=== PATIENT | male | born 1985 | race Caucasian/White ===

== ENCOUNTER 2021-11-06 03:57 | Emergency (ER) | payer BC, SELFPAY ==
[2021-11-06 04:02] VITALS: BP 132/73; PULSE 98; RESP 14; TEMP 36.4; O2SAT 98
--- NOTE | 2021-11-06 04:37 | ED.GENADULT ---
HPI - General Adult General Chief complaint: Skin/Abscess/Foreign Body Stated complaint: knot on the back of my head. Time Seen by Provider: 11/06/21 04:03 History of Present Illness HPI narrative: 36-year-old male with history of MRSA exposure presenting to the emergency department for evaluation of a sore on the back of his scalp. Patient states over the last 2 months he has had multiple sores on his body. Patient does have multiple sores currently in various states of excoriation. Patient's primary complaint is the wound on the back of his scalp. Patient does have a 3 cm area of erythema. Related Data Allergies Allergy/AdvReac Type Severity Reaction Status Date / Time No Known Allergies Allergy Verified 11/06/21 04:33 Review of Systems Review of Systems: CONSTITUTIONAL: Denies fever, chills, or sweats. EYES: Denies visual changes, redness, or discharge. ENT: Denies rhinorrhea, congestion, sore throat, or otalgia. CARDIOVASCULAR: Denies chest pain, palpitations, or edema. RESPIRATORY: Denies cough or dyspnea. GASTROINTESTINAL: Denies abdominal pain, nausea, vomiting, or diarrhea. GENITOURINARY: Denies dysuria or hematuria. SKIN: See HPI MUSCULOSKELETAL: Denies back pain, joint pain, or myalgia. NEUROLOGIC: Denies headache, numbness, or weakness. Exam Narrative: APPEARANCE: Well appearing, no pain, no distress, well-nourished. HEAD: normocephalic, atraumatic. EYES: PERRLA/EOMI, conjunctivae clear. NOSE: Normal no drainage NECK: Supple. No adenopathy, no masses. RESPIRATORY: Airway patent, respirations nonlabored. Clear to auscultation bilaterally, no rales, rhonchi, wheezing. CARDIOVASCULAR: Regular rate and rhythm without murmurs rubs or gallops. ABDOMINAL: Soft, nontender, nondistended, normal bowel sounds MUSCULOSKELETAL: Moves all extremities. Strength/ROM intact, No edema, No calf tenderness. NEURO: Alert. Cranial nerves II through XII intact. Grossly intact SKIN: Warm, dry. Normal Color. Area of erythema on posterior scalp. Bedside ultrasound showed no drainable abscess. Course Course Emergency Course: Patient was started on Bactrim in the emergency department and discharged home with Bactrim. Patient was encouraged to have close follow-up with his primary care physician. All questions and concerns were addressed. Patient was stable at time of discharge. Vital Signs Vital signs: Vital Signs Temperature 97.5 F L 11/06/21 04:02 Pulse Rate 98 11/06/21 04:02 Respiratory Rate 14 11/06/21 04:02 Blood Pressure 132/73 11/06/21 04:02 Pulse Oximetry 98 11/06/21 04:02 Oxygen Delivery Room Air 11/06/21 04:02 Temperature 97.5 F L 11/06/21 04:02 Pulse Rate 98 11/06/21 04:02 Respiratory Rate 14 11/06/21 04:02 Blood Pressure 132/73 11/06/21 04:02 Pulse Oximetry 98 11/06/21 04:02 Oxygen Delivery Room Air 11/06/21 04:02 Medical Decision Making Vital Signs Vital Signs: Vital Signs Temperature 97.5 F L 11/06/21 04:02 Pulse Rate 98 11/06/21 04:02 Respiratory Rate 14 11/06/21 04:02 Blood Pressure 132/73 11/06/21 04:02 Pulse Oximetry 98 11/06/21 04:02 Oxygen Delivery Room Air 11/06/21 04:02 Temperature 97.5 F L 11/06/21 04:02 Pulse Rate 98 11/06/21 04:02 Respiratory Rate 14 11/06/21 04:02 Blood Pressure 132/73 11/06/21 04:02 Pulse Oximetry 98 11/06/21 04:02 Oxygen Delivery Room Air 11/06/21 04:02 Discharge Plan Discharge Clinical Impression: Abscess or cellulitis of scalp Patient Disposition: Home, Self-Care Condition: Stable Instructions: Antibiotic Form, Impetigo (ED), Cellulitis (ED) Additional Instructions: Antibiotic as directed until completed. Have close follow-up with your primary care physician. Prescriptions: New sulfamethoxazole-trimethoprim [Bactrim DS] 800-160 mg tablet 1 tablet PO Q12H Qty: 14 0RF Follow-up/Referrals: PHYSICIAN NOT ON STAFF,NONSTAFF [Primary Care Provider] -
[2021-11-06 04:38] VITALS: BP 130/70; PULSE 75; RESP 18; O2SAT 98
== END 2021-11-06 04:40 | disposition home or self-care (01) ==
PROVIDERS: Emergency Provider Emergency Medicine
DX: L02.811 Cutaneous abscess of head [any part, except face] (principal); L03.811 Cellulitis of head [any part, except face]
CPT/HCPCS: 99283; A9270

== ENCOUNTER 2021-11-09 04:29 | Emergency (ER) | payer BC, SELFPAY ==
[2021-11-09 04:32] VITALS: BP 135/78; PULSE 96; RESP 18; TEMP 36.6; O2SAT 99
--- NOTE | 2021-11-09 04:45 | ED.SKABFB ---
HPI - Skin/Abscess/Foreign Bdy General Chief complaint: Skin/Abscess/Foreign Body Stated complaint: abcess back of head Time Seen by Provider: 11/09/21 04:39 History of Present Illness HPI narrative: 36-year-old male who had been seen here recently and diagnosed with cellulitis, discharged with Bactrim, presents because he states that the infection seems to be getting worse, he is not having any fevers or chills, nausea or vomiting, but states that he has noticed some purulent discharge the last few days. Related Data Allergies Allergy/AdvReac Type Severity Reaction Status Date / Time No Known Allergies Allergy Verified 11/09/21 04:36 Review of Systems Review of Systems: CONST: No fever. HEENT: Painful lesion to back of head C/V: No chest pain RESP: No cough GI: No nausea or vomiting : No dysuria. M/S: No joint pain. SKIN: Painful skin lesion that is draining on the back of his head NEURO: No focal numbness or weakness PSYCH: [No depression] PMFSH Past Medical History Medical History (Updated 11/09/21 @ 05:17 by Jessica Ha MD) MRSA (methicillin resistant staph aureus) culture positive Social History Social History (Updated 11/09/21 @ 05:21 by Jessica Ha MD) Smoking status: Current every day smoker Substance use: current Substance use type: methamphetamine Exam Narrative: EXAMINATION OF ORGAN SYSTEMS/BODY AREAS: Constitutional: Vital signs per nursing GENERAL: Appears distressed from having the skin lesions HEAD: Normal with no signs of head trauma. EYES: EOMI, conjunctiva normal ENT: Hearing grossly intact LUNGS: Nonlabored breathing. HEART: [Regular rate and rhythm] ABD: No distention EXT: Normal range of motion SKIN: Multiple lesions all over body, with large 4 cm x 4 cm circular area of induration to the back of his head that is erythematous, tender to palpation, without any fluctuance NEURO: [Alert and oriented x 3. No gross focal sensory or strength deficits.] PSYCH: Normal affect Course Vital Signs Vital signs: Vital Signs Temperature 97.9 F 11/09/21 04:32 Pulse Rate 96 11/09/21 04:32 Respiratory Rate 18 11/09/21 04:32 Blood Pressure 135/78 11/09/21 04:32 Pulse Oximetry 99 07/28/22 04:32 Oxygen Delivery Room Air 11/09/21 04:32 Temperature 97.9 F 11/09/21 04:32 Pulse Rate 96 11/09/21 04:32 Respiratory Rate 18 11/09/21 04:32 Blood Pressure 135/78 11/09/21 04:32 Pulse Oximetry 99 11/09/21 04:32 Oxygen Delivery Room Air 11/09/21 04:32 MDM - Skin/Abscess/Foreign Bdy MDM Narrative Medical decision making narrative: MEDICAL DECISION MAKING AND COURSE IN THE ED WITH INTERPRETATION/REVIEW OF DIAGNOSTIC STUDIES: Electronic medical record was reviewed. Patient presented to the ED with complaint of painful skin rash. Vitals [were within acceptable limits]. Physical exam revealed area of tenderness and induration consistent with purulent cellulitis versus abscess, without any fluctuance that may benefit from drainage I did perform a bedside ultrasound which confirmed thickened skin consistent with cellulitis without any signs of large fluid collection. However patient really wanted to try I&D so attempt at incision and drainage was performed here, verbal consent obtained and risks/benefits explained. Skin was cleaned and [2% lidocaine] solution was injected to make a wheal for local anesthesia. An 18g was used to attempt to aspirate or wolf the area, with around 2cc of purulent discharge expressed from various areas after pressure applied. There was [minimal] bleeding, patient tolerated procedure [well]. I have asked the patient to come in for observation as he has failed outpatient antibiotics, however he does not want to stay. I wanted to at least get labs for trending however patient refused any IV or lab draws. [Patient was given clindamycin here and a course to continue at home; instructed to continue the bactrim.] The patient is discharged
[2021-11-09] MEDS: CLINDAMYCIN HCL 150 MG CAP 450 MG PO (05:17)
[2021-11-09] MEDS: IBUPROFEN 600 MG TABLET PO (05:27)
[2021-11-09] MEDS: ACETAMINOPHEN 325 MG TABLET 650 MG PO (05:27)
[2021-11-09 05:59] VITALS: BP 137/87; PULSE 52; RESP 18; O2SAT 97
== END 2021-11-09 05:30 | disposition home or self-care (01) ==
PROVIDERS: Emergency Provider Emergency Medicine
DX: L03.811 Cellulitis of head [any part, except face] (principal); Z86.14 Personal history of Methicillin resistant Staphylococcus aureus infection; F17.200 Nicotine dependence, unspecified, uncomplicated
CPT/HCPCS: 10160; 99283; A9270

== ENCOUNTER 2022-03-07 01:00 | Emergency (ER) | payer BC, SELFPAY ==
--- NOTE | ~2022-03-07 | XR_ITS ---
EXAMINATION: XR abdomen/kub 1V DATE: 03/07/2022 02:17 INDICATION: Constipation. TECHNIQUE: A supine view of the abdomen on 2 radiographs was obtained. COMPARISON: None. FINDINGS: There are no dilated loops of bowel. There is a large volume of stool in the colon. IMPRESSION: 1. Large volume of stool in the colon. Reviewed, dictated and finalized at location A. Y INTERVENTIONIST
[2022-03-07 01:03] VITALS: BP 126/74; PULSE 80; RESP 16; TEMP 37.1; O2SAT 98
[2022-03-07 03:00] VITALS: BP 127/87; PULSE 80; RESP 19; O2SAT 100
--- NOTE | 2022-03-07 03:57 | ED.GENADULT ---
HPI - General Adult General Chief complaint: Unspecified Stated complaint: constipation Time Seen by Provider: 03/07/22 02:44 History of Present Illness HPI narrative: This a 37-year-old fentanyl user presenting ED with constipation. Patient has not had a bowel movement in 1 week. He is still passing gas. He is still tolerating p.o. and has not had any nausea or vomiting. Patient uses fentanyl several times a day by snorting it. He has no abdominal surgeries or history of hernia. Related Data Allergies Allergy/AdvReac Type Severity Reaction Status Date / Time No Known Allergies Allergy Verified 11/09/21 04:36 Review of Systems Review of Systems: CONSTITUTIONAL: Denies night sweats. EYES: No eye pain ENT: Denies rhinorrhea CARDIOVASCULAR: Denies palpitations RESPIRATORY: Denies hemoptysis GASTROINTESTINAL: Denies hematemesis GENITOURINARY: Denies hematuria. SKIN: Denies rash MUSCULOSKELETAL: Denies myalgia. NEUROLOGIC: Denies weakness. PSYCHIATRIC: Denies delusions PMFSH Past Medical History Medical History MRSA (methicillin resistant staph aureus) culture positive Social History Social History Smoking status: Current every day smoker Substance use: current Substance use type: methamphetamine Exam Narrative: APPEARANCE: No apparent distress. Head: atraumatic. EYES: EOMI, NOSE: Atraumatic NECK: Trachea midline RESPIRATORY: No increased rate of breathing CARDIOVASCULAR: RRR, ABDOMINAL: Non-distended, voluntary guarding but once patient relaxes is soft nontender. Rectal Exam: Hard pellet like stools in the rectal vault. MUSCULOSKELETAl: No obvious deformities NEURO: Alert. Moving 4/4 extremities SKIN:: Warm, dry. Normal color PSYCHIATRIC: Normal affect Course Vital Signs Vital signs: Vital Signs Temperature 98.8 F 03/07/22 01:03 Pulse Rate 80 03/07/22 01:03 Respiratory Rate 16 03/07/22 01:03 Blood Pressure 126/74 03/07/22 01:03 Pulse Oximetry 98 03/07/22 01:03 Temperature 98.8 F 03/07/22 01:03 Pulse Rate 80 03/07/22 01:03 Respiratory Rate 16 03/07/22 01:03 Blood Pressure 126/74 03/07/22 01:03 Pulse Oximetry 98 03/07/22 01:03 Procedures Rectal Disimpaction Rectal Disimpaction #1: Time out performed rectal disimpaction: Yes Indication: fecal impaction Procedural Sedation: No Sedation/Analgesia: none Technique: manual disimpaction with gloved finger Result: unable to disimpact Patient Tolerated Procedure: well and no complications Complications: none Medical Decision Making MDM Narrative Medical decision making narrative: This is a 37-year-old male presenting ED with chief complaint of constipation. He is a daily fentanyl users constipation is likely opiate related. I attempted a manual disimpaction while I could feel some pellet-like stools and rectal vault was too deep for me to disimpact digitally. patient was offered a Fleet patient was given methylnaltrexone. he was offered an enema but refused. He says he wants to go home since he is court in the morning. Patient will be discharged with a bowel regimen instructions return if he develops symptoms of bowel obstruction. Vital Signs Vital Signs: Vital Signs Temperature 98.8 F 03/07/22 01:03 Pulse Rate 80 03/07/22 01:03 Respiratory Rate 16 03/07/22 01:03 Blood Pressure 126/74 03/07/22 01:03 Pulse Oximetry 98 03/07/22 01:03 Temperature 98.8 F 03/07/22 01:03 Pulse Rate 80 03/07/22 01:03 Respiratory Rate 16 03/07/22 01:03 Blood Pressure 126/74 03/07/22 01:03 Pulse Oximetry 98 03/07/22 01:03 Discharge Plan Discharge Clinical Impression: Opiate addiction, Constipation Patient Disposition: Home, Self-Care Condition: Stable Instructions: Antibiotic Form, Opioid Use Disorder
[2022-03-07] MEDS: METHYLNALTREXONE 12 MG/0.6 ML VIAL SUB-Q (04:11)
== END 2022-03-07 04:19 | disposition home or self-care (01) ==
PROVIDERS: Emergency Provider Emergency Medicine
DX: T40.411A Poisoning by fentanyl or fentanyl analogs, accidental (unintentional), initial encounter (principal); K59.03 Drug induced constipation; F11.20 Opioid dependence, uncomplicated; Z86.14 Personal history of Methicillin resistant Staphylococcus aureus infection
CPT/HCPCS: 74018; 96372; 99283; J2212